=== PATIENT | male | born 1950 | race Caucasian/White ===

== ENCOUNTER 2016-08-02 01:35 | Emergency (ER) | payer MEDICARE, OTHER ==
[~2016-08-02 01:35] MED LIST: AT25 PO; CYMBALTA60 PO; LORTAB10 PO; METHOC750B PO; MICARDIS HCT PO; PRAVACHOL80 MG PO; ROXICODONE15 MG PO; ULTRAM50 PO; [UNRECOGNIZED DRUG - OTHER] PO
== END 2016-08-02 02:17 | disposition home or self-care (01) ==
LOC: ER 01:35
DX: R04.0 Epistaxis (principal); I10 Essential (primary) hypertension; Z87.442 Personal history of urinary calculi; F41.9 Anxiety disorder, unspecified; F32.9 Major depressive disorder, single episode, unspecified; Z85.22 Personal history of malignant neoplasm of nasal cavities, middle ear, and accessory sinuses; Z79.899 Other long term (current) drug therapy
CPT/HCPCS: 99283; A9270-GY

== ENCOUNTER 2016-08-14 22:11 | Emergency (ER) | payer MEDICARE, OTHER ==
[2016-08-14 20:59] LABS: BASOPHILS 0.2 %; BASOPHILS ABSOLUTE 0.02 10/3/uL (0.0-0.16); ER CBC TAT 0 Hrs 08 Mins; HEMOGLOBIN 14.5 g/dL (13.6-17.8); IMMATURE GRANULOCYTES 0.3 %; IMMATURE GRANULOCYTES ABSOLUTE 0.03 10/3/uL (0.0-0.11); LYMPHOCYTES ABSOLUTE 2.92 10/3/uL (0.67-4.30); MANUAL DIFF NO %; MEAN CORPUS HGB CONC 33.7 g/dL (32.0-36.0); MEAN CORPUSCULAR HEMOGLOB 30.5 pg (26.0-34.0); MEAN CORPUSCULAR VOLUME 90.5 fL (80-100); MEAN PLATELET VOLUME 10.3 fL (9.2-13.0); MONOCYTES 11.4 %; MONOCYTES ABSOLUTE 1.11 10/3/uL (0.21-1.20); NEUTROPHILS 57.1 %; NEUTROPHILS ABSOLUTE 5.56 10/3/uL (2.02-8.40); PLATELET COUNT 182 10/3/uL (150-400); RED CELL COUNT 4.75 10/6/uL (4.7-6.1); WHITE BLOOD CELLS 9.7 10/3/uL (4.5-10.5)
[2016-08-14 22:05] LABS: SED RATE 13 MM/HR (0-15)
== END 2016-08-14 22:18 | disposition home or self-care (01) ==
LOC: ER 22:11
PROVIDERS: Physician Assistant
DX: M25.571 Pain in right ankle and joints of right foot (principal); Z79.899 Other long term (current) drug therapy
CPT/HCPCS: 84550; 85025; 85652; 96372; 99283; J1170; J2405; J2800